=== PATIENT | male | born 1980 | race Caucasian/White ===

== ENCOUNTER → 2017-09-29 | Outpatient (CLI) | payer OTHER, MEDICAID ==
[2017-09-29 15:43] LABS: BASO # 0.1 (0.02-0.10); EOS # 0.2 (0.04-0.40); EOS % 2.1 % (0.0-4.0); HEMATOCRIT 47.7 % (42.0-52.0); HEMOGLOBIN 15.4 g/dL (13.5-18.0); LYMPH# 1.3 (1.50-4.00); MEAN CELL VOLUME 95 fl (78-100); MEAN CORPUSCULAR HEMOGLOBIN 31 pg (27-31); MEAN CORPUSCULAR HGB CONC 32 g/dL (33-37); MEAN PLATELET VOLUME 11.9 fl (7.4-10.4); MONO # 0.7 (0.20-0.80); PLATELET COUNT 157 K/mm3 (130-400); RED BLOOD COUNT 5.05 M/mm3 (4.20-5.60); WHITE BLOOD COUNT 7.5 K/mm3 (4.8-10.8)
[2017-09-29 15:55] LABS: ALBUMIN 4.1 g/dL (3.5-5.0); BUN/CREATININE RATIO 13.8 (6.0-26.0); CALCIUM 8.9 mg/dL (8.4-10.2); POTASSIUM 4.7 mmol/L (3.6-5.0); TOTAL BILIRUBIN 0.4 mg/dL (0.2-1.3)
[2017-09-29 16:53] LABS: ERYTHROCYTE SEDIMENTATION RATE 9 mm/hr (0-15)
== END ==
LOC: LAB 15:12
PROVIDERS: Internal Medicine
DX: Z00.00 Encounter for general adult medical examination without abnormal findings (principal); D64.9 Anemia, unspecified; M10.9 Gout, unspecified; E03.4 Atrophy of thyroid (acquired); D50.8 Other iron deficiency anemias; I44.2 Atrioventricular block, complete

== ENCOUNTER → 2017-12-11 | Outpatient (CLI) | payer OTHER, MEDICAID ==
[2017-12-11 15:31] LABS: BASO # 0.1 (0.02-0.10); EOS # 0.2 (0.04-0.40); EOS % 2.5 % (0.0-4.0); HEMATOCRIT 45.4 % (42.0-52.0); HEMOGLOBIN 14.9 g/dL (13.5-18.0); LYMPH# 1.3 (1.50-4.00); MEAN CELL VOLUME 94 fl (78-100); MEAN CORPUSCULAR HEMOGLOBIN 31 pg (27-31); MEAN CORPUSCULAR HGB CONC 33 g/dL (33-37); MEAN PLATELET VOLUME 11.8 fl (7.4-10.4); MONO # 0.7 (0.20-0.80); NEU # 4.8 (1.40-6.50); PLATELET COUNT 150 K/mm3 (130-400); RED BLOOD COUNT 4.84 M/mm3 (4.20-5.60); RED CELL DISTRIBUTION WIDTH 15.6 % (11.5-14.5); WHITE BLOOD COUNT 7.2 K/mm3 (4.8-10.8)
== END ==
LOC: LAB 14:49
PROVIDERS: Internal Medicine
DX: D50.8 Other iron deficiency anemias (principal); D64.9 Anemia, unspecified; Z88.0 Allergy status to penicillin

== ENCOUNTER → 2018-01-15 | Outpatient (CLI) | payer OTHER, MEDICAID ==
[~2018-01-15] VITALS: Ht 152.4 cm; Wt 91.4 kg
[~2018-01-15] MED LIST: ASPIRIN 81M81 MG/TA2 PO; LEVOTHYROXIN0.075 MG PO; NATURAL IRON65 MG PO; VITAMIN C PURE500 MG PO; WARFARIN SOD5 MG PO; ZYLOPRIM 100MG100 MG PO
[2018-01-15 11:38] VITALS: BP 143/81
[2018-01-15 12:55] LABS: HEMATOCRIT 47.7 % (42.0-52.0); HEMOGLOBIN 15.5 g/dL (13.5-18.0); MEAN CELL VOLUME 94 fl (78-100); MEAN CORPUSCULAR HEMOGLOBIN 31 pg (27-31); MEAN CORPUSCULAR HGB CONC 33 g/dL (33-37); MEAN PLATELET VOLUME 11.6 fl (7.4-10.4); PLATELET COUNT 178 K/mm3 (130-400); RED BLOOD COUNT 5.09 M/mm3 (4.20-5.60); RED CELL DISTRIBUTION WIDTH 15.9 % (11.5-14.5); WHITE BLOOD COUNT 8.8 K/mm3 (4.8-10.8)
[2018-01-15 15:02] LABS: NEUTROPHILS 69 % (42-75)
[2018-01-15 15:03] LABS: LYMPHOCYTE 23 % (20-51); MONOCYTE 8 % (3-10)
[2018-01-15 15:10] LABS: ERYTHROCYTE SEDIMENTATION RATE 8 mm/hr (0-15)
== END ==
LOC: AMSURD 11:23
PROVIDERS: Nurse Practitioner Family
DX: R05 Cough (principal); Z95.2 Presence of prosthetic heart valve; Z95.0 Presence of cardiac pacemaker

== ENCOUNTER → 2018-10-09 | Outpatient (CLI) | payer OTHER, MEDICAID ==
[2018-01-15 11:38] VITALS: BP 143/81
[2018-10-09 10:14] LABS: HEMATOCRIT 47.5 % (42.0-52.0); HEMOGLOBIN 15.4 g/dL (13.5-18.0); MEAN CELL VOLUME 93 fl (78-100); MEAN CORPUSCULAR HEMOGLOBIN 30 pg (27-31); MEAN CORPUSCULAR HGB CONC 32 g/dL (33-37); MEAN PLATELET VOLUME 11.6 fl (7.4-10.4); PLATELET COUNT 162 K/mm3 (130-400); RED BLOOD COUNT 5.12 M/mm3 (4.20-5.60); RED CELL DISTRIBUTION WIDTH 15.5 % (11.5-14.5); WHITE BLOOD COUNT 6.6 K/mm3 (4.8-10.8)
[2018-10-09 10:26] LABS: ALBUMIN 4.3 g/dL (3.5-5.0); CALCIUM 9.2 mg/dL (8.4-10.2); POTASSIUM 4.7 mmol/L (3.6-5.0); TOTAL BILIRUBIN 0.6 mg/dL (0.2-1.3); TOTAL PROTEIN 8.1 g/dL (6.3-8.2)
[2018-10-09 10:48] LABS: BAND 1 % (0-10); LYMPHOCYTE 11 % (20-51); NEUTROPHILS 71 % (42-75)
[2018-10-09 10:49] LABS: MONOCYTE 12 % (3-10)
[2018-10-09 11:09] LABS: ERYTHROCYTE SEDIMENTATION RATE 5 mm/hr (0-15)
== END ==
LOC: LAB 09:13
PROVIDERS: Internal Medicine
DX: Z00.00 Encounter for general adult medical examination without abnormal findings (principal); D64.9 Anemia, unspecified; M10.9 Gout, unspecified; E03.9 Hypothyroidism, unspecified; I44.2 Atrioventricular block, complete; D50.9 Iron deficiency anemia, unspecified

== ENCOUNTER → 2019-10-03 | Outpatient (CLI) | payer MEDICAID ==
[2018-01-15 11:38] VITALS: BP 143/81
== END ==
LOC: LAB 10:58
DX: R50.9 Fever, unspecified (principal)

== ENCOUNTER → 2019-10-06 | Outpatient (CLI) | payer MEDICARE, MEDICAID ==
[2018-01-15 11:38] VITALS: BP 143/81
[2019-10-06 17:59] LABS: PH-URINE 6.5 (5.0 - 8.0); URINE APPEARANCE CLEAR; URINE BILIRUBIN NEGATIVE (NEGATIVE); URINE BLOOD 50 ery/uL (NEGATIVE); URINE COLOR LIGHT YELLOW; URINE GLUCOSE NEGATIVE (NEGATIVE); URINE KETONE NEGATIVE (NEGATIVE); URINE LEUKOCYTE ESTERASE NEGATIVE (NEGATIVE); URINE NITRATE NEGATIVE (NEGATIVE); URINE PROTEIN(semi-quant) NEGATIVE (NEGATIVE); URINE UROBILINOGEN NORMAL (NORMAL); URINE WBC 0-1 /hpf (0-3)
== END ==
LOC: LAB 14:39
PROVIDERS: Internal Medicine
DX: R31.9 Hematuria, unspecified (principal)

== ENCOUNTER → 2019-10-12 | Outpatient (CLI) | payer MEDICARE, MEDICAID ==
[2018-01-15 11:38] VITALS: BP 143/81
[2019-10-12 09:47] LABS: ALBUMIN 3.4 g/dL (3.5-5.0); HEMATOCRIT 42.8 % (42.0-52.0); HEMOGLOBIN 13.7 g/dL (13.5-18.0); MEAN CELL VOLUME 96 fl (78-100); MEAN CORPUSCULAR HEMOGLOBIN 31 pg (27-31); MEAN CORPUSCULAR HGB CONC 32 g/dL (33-37); MEAN PLATELET VOLUME 11.9 fl (7.4-10.4); PLATELET COUNT 200 K/mm3 (130-400); POTASSIUM 4.7 mmol/L (3.5-5.1); RED BLOOD COUNT 4.48 M/mm3 (4.20-5.60); RED CELL DISTRIBUTION WIDTH 16.2 % (11.5-14.5); WHITE BLOOD COUNT 8.5 K/mm3 (4.8-10.8)
[2019-10-12 09:48] LABS: CALCIUM 8.8 mg/dL (8.3-10.5)
[2019-10-12 09:49] LABS: TOTAL PROTEIN 7.9 g/dL (6.4-8.3)
[2019-10-12 09:51] LABS: TOTAL BILIRUBIN 0.4 mg/dL (0.2-1.2)
[2019-10-12 09:56] LABS: MAGNESIUM 2.06 mg/dL (1.60-2.60)
[2019-10-12 10:50] LABS: LYMPHOCYTE 26 % (20-51); MONOCYTE 9 % (3-10); NEUTROPHILS 63 % (42-75)
[2019-10-12 10:54] LABS: ERYTHROCYTE SEDIMENTATION RATE 43 mm/hr (0-15)
== END ==
LOC: LAB 09:10
PROVIDERS: Internal Medicine
DX: Z00.00 Encounter for general adult medical examination without abnormal findings (principal); D64.9 Anemia, unspecified; I44.2 Atrioventricular block, complete; D50.8 Other iron deficiency anemias; E03.9 Hypothyroidism, unspecified; M10.9 Gout, unspecified

== ENCOUNTER → 2019-11-07 | Outpatient (CLI) | payer MEDICARE, MEDICAID ==
[2018-01-15 11:38] VITALS: BP 143/81
== END ==
LOC: RAD 13:07
DX: R05 Cough (principal); Z95.0 Presence of cardiac pacemaker; Z95.2 Presence of prosthetic heart valve

== ENCOUNTER → 2020-10-10 | Outpatient (CLI) | payer MEDICARE, MEDICAID ==
[2018-01-15 11:38] VITALS: BP 143/81
[2020-10-10 10:17] LABS: HEMATOCRIT 46.6 % (42.0-52.0); HEMOGLOBIN 15.1 g/dL (13.5-18.0); MEAN CELL VOLUME 94 fl (78-100); MEAN CORPUSCULAR HEMOGLOBIN 30 pg (27-31); MEAN CORPUSCULAR HGB CONC 32 g/dL (33-37); MEAN PLATELET VOLUME 11.9 fl (7.4-10.4); PLATELET COUNT 179 K/mm3 (130-400); RED BLOOD COUNT 4.98 M/mm3 (4.20-5.60)
[2020-10-10 10:18] LABS: ALBUMIN 3.9 g/dL (3.5-5.0); POTASSIUM 4.8 mmol/L (3.5-5.1)
[2020-10-10 10:19] LABS: CALCIUM 9.2 mg/dL (8.3-10.5)
[2020-10-10 10:20] LABS: TOTAL PROTEIN 7.7 g/dL (6.4-8.3)
[2020-10-10 10:22] LABS: TOTAL BILIRUBIN 0.4 mg/dL (0.2-1.2)
[2020-10-10 10:40] LABS: BAND 1 % (0-10); LYMPHOCYTE 14 % (20-51); MONOCYTE 9 % (3-10); NEUTROPHILS 72 % (42-75)
[2020-10-10 11:33] LABS: ERYTHROCYTE SEDIMENTATION RATE 19 mm/hr (0-15)
== END ==
LOC: LAB 09:27
PROVIDERS: Internal Medicine
DX: E03.4 Atrophy of thyroid (acquired) (principal); M10.9 Gout, unspecified; D50.9 Iron deficiency anemia, unspecified; K90.9 Intestinal malabsorption, unspecified; I38 Endocarditis, valve unspecified

== ENCOUNTER → 2021-02-18 | Outpatient (CLI) | payer MEDICARE, MEDICAID | LOC: LAB 16:41 | DX: D50.9 Iron deficiency anemia, unspecified (principal); K90.9 Intestinal malabsorption, unspecified; I38 Endocarditis, valve unspecified ==

== ENCOUNTER → 2021-02-27 | Outpatient (CLI) | payer MEDICARE, MEDICAID | LOC: VAS 13:19 → RAD 13:30 → VAS 13:30 | DX: R06.00 Dyspnea, unspecified (principal) ==

== ENCOUNTER → 2021-03-01 | Outpatient (CLI) | payer MEDICARE, MEDICAID | LOC: LAB 13:39 | DX: R79.0 Abnormal level of blood mineral (principal) ==

== ENCOUNTER → 2021-10-16 | Outpatient (CLI) | payer MEDICARE, MEDICAID ==
[2021-10-16 14:16] LABS: BASO # 0.11 K/mm3 (0.02-0.10); EOS # 0.15 K/mm3 (0.04-0.40); EOS % 1.8 % (0.0-4.0); HEMATOCRIT 45.8 % (42.0-52.0); HEMOGLOBIN 15.1 g/dL (13.5-18.0); MEAN CELL VOLUME 94 fl (78-100); MEAN CORPUSCULAR HEMOGLOBIN 31 pg (27-31); MEAN CORPUSCULAR HGB CONC 33 g/dL (33-37); MEAN PLATELET VOLUME 11.3 fl (7.4-10.4); MONO # 0.86 K/mm3 (0.20-0.80); PLATELET COUNT 170 K/mm3 (130-400); RED CELL DISTRIBUTION WIDTH 16.4 % (11.5-14.5); WHITE BLOOD COUNT 8.2 K/mm3 (4.8-10.8)
[2021-10-16 15:07] LABS: POTASSIUM 4.6 mmol/L (3.5-5.1)
[2021-10-16 15:08] LABS: ALBUMIN 3.9 g/dL (3.5-5.0); CALCIUM 9.5 mg/dL (8.3-10.5)
[2021-10-16 15:10] LABS: TOTAL PROTEIN 7.7 g/dL (6.4-8.3)
[2021-10-16 15:12] LABS: TOTAL BILIRUBIN 0.4 mg/dL (0.2-1.2)
[2021-10-16 15:41] LABS: ERYTHROCYTE SEDIMENTATION RATE 15 mm/hr (0-15)
== END ==
LOC: LAB 13:48
PROVIDERS: Internal Medicine
DX: Z12.5 Encounter for screening for malignant neoplasm of prostate (principal); E03.4 Atrophy of thyroid (acquired); I44.2 Atrioventricular block, complete; M10.9 Gout, unspecified; D50.9 Iron deficiency anemia, unspecified; K90.9 Intestinal malabsorption, unspecified; I38 Endocarditis, valve unspecified; E78.2 Mixed hyperlipidemia

== ENCOUNTER → 2021-11-02 | Outpatient (CLI) | payer MEDICARE, MEDICAID ==
[2021-11-02 12:21] LABS: BASO # 0.09 K/mm3 (0.02-0.10); EOS # 0.17 K/mm3 (0.04-0.40); EOS % 1.5 % (0.0-4.0); HEMATOCRIT 46.9 % (42.0-52.0); HEMOGLOBIN 15.4 g/dL (13.5-18.0); LYMPH# 1.11 K/mm3 (1.50-4.00); MEAN CELL VOLUME 93 fl (78-100); MEAN CORPUSCULAR HEMOGLOBIN 31 pg (27-31); MEAN CORPUSCULAR HGB CONC 33 g/dL (33-37); MEAN PLATELET VOLUME 12.2 fl (7.4-10.4); MONO # 0.85 K/mm3 (0.20-0.80); NEU # 8.69 K/mm3 (1.40-6.50); PLATELET COUNT 159 K/mm3 (130-400); RED BLOOD COUNT 5.02 M/mm3 (4.20-5.60); RED CELL DISTRIBUTION WIDTH 16.3 % (11.5-14.5); WHITE BLOOD COUNT 11.1 K/mm3 (4.8-10.8)
[2021-11-02 12:27] LABS: ALBUMIN 3.9 g/dL (3.5-5.0); POTASSIUM 4.3 mmol/L (3.5-5.1)
[2021-11-02 12:28] LABS: CALCIUM 9.1 mg/dL (8.3-10.5)
[2021-11-02 12:30] LABS: TOTAL PROTEIN 7.8 g/dL (6.4-8.3)
[2021-11-02 12:31] LABS: TOTAL BILIRUBIN 0.7 mg/dL (0.2-1.2)
[2021-11-02 13:24] LABS: ERYTHROCYTE SEDIMENTATION RATE 14 mm/hr (0-15)
== END ==
LOC: LAB 12:00
PROVIDERS: Internal Medicine
DX: M79.89 Other specified soft tissue disorders (principal)

== ENCOUNTER → 2021-12-02 | Outpatient (CLI) | payer MEDICARE, MEDICAID ==
[2021-12-02 15:59] LABS: BASO # 0.12 K/mm3 (0.02-0.10); EOS % 2.2 % (0.0-4.0); HEMATOCRIT 44.2 % (42.0-52.0); HEMOGLOBIN 14.3 g/dL (13.5-18.0); LYMPH# 1.66 K/mm3 (1.50-4.00); MEAN CELL VOLUME 94 fl (78-100); MEAN CORPUSCULAR HEMOGLOBIN 31 pg (27-31); MEAN CORPUSCULAR HGB CONC 32 g/dL (33-37); MEAN PLATELET VOLUME 11.7 fl (7.4-10.4); MONO # 0.94 K/mm3 (0.20-0.80); NEU # 6.05 K/mm3 (1.40-6.50); PLATELET COUNT 168 K/mm3 (130-400); RED BLOOD COUNT 4.69 M/mm3 (4.20-5.60); WHITE BLOOD COUNT 9.3 K/mm3 (4.8-10.8)
[2021-12-02 16:08] LABS: ALBUMIN 3.8 g/dL (3.5-5.0); POTASSIUM 4.5 mmol/L (3.5-5.1)
[2021-12-02 16:09] LABS: CALCIUM 9.2 mg/dL (8.3-10.5)
[2021-12-02 16:10] LABS: TOTAL PROTEIN 7.7 g/dL (6.4-8.3)
[2021-12-02 16:12] LABS: TOTAL BILIRUBIN 0.3 mg/dL (0.2-1.2)
== END ==
LOC: RAD 15:22 → LAB 15:22
PROVIDERS: Nurse Practitioner
DX: M25.561 Pain in right knee (principal)

== ENCOUNTER → 2021-12-31 | Outpatient (CLI) | payer MEDICARE, MEDICAID ==
[2021-12-31 18:12] LABS: URINE WBC 0 /hpf (0-3)
[2021-12-31 18:22] LABS: URINE APPEARANCE CLEAR; URINE COLOR YELLOW
[2021-12-31 18:23] LABS: URINE BILIRUBIN NEGATIVE (NEGATIVE); URINE BLOOD TRACE (NEGATIVE); URINE GLUCOSE NEGATIVE (NEGATIVE); URINE KETONE NEGATIVE (NEGATIVE); URINE LEUKOCYTE ESTERASE NEGATIVE (NEGATIVE); URINE MUCUS PRESENT (NOT PRESENT); URINE NITRATE NEGATIVE (NEGATIVE); URINE PROTEIN(semi-quant) TRACE (NEGATIVE); URINE UROBILINOGEN NORMAL (NORMAL)
== END ==
LOC: LAB 17:53
PROVIDERS: Nurse Practitioner Family
DX: R31.9 Hematuria, unspecified (principal)

== ENCOUNTER → 2022-01-08 | Outpatient (CLI) | payer MEDICARE, MEDICAID | LOC: RAD 07:59 | DX: N20.0 Calculus of kidney (principal); K80.80 Other cholelithiasis without obstruction | CPT/HCPCS: Q9967 ==

== ENCOUNTER → 2022-01-09 | Outpatient (CLI) | payer MEDICARE, MEDICAID | LOC: LAB 11:30 | DX: U07.1 COVID-19 (principal) ==

== ENCOUNTER → 2022-01-10 | Outpatient (CLI) | payer MEDICARE, MEDICAID ==
[~2022-01-10] VITALS: Ht 152.4 cm; Wt 91.4 kg
[2022-01-10 17:30] VITALS: BP 126/77
[2022-01-10 17:45] VITALS: BP 115/76
[2022-01-10 18:00] VITALS: BP 115/77
[2022-01-10 18:15] VITALS: BP 123/74
[2022-01-10 18:30] VITALS: BP 129/76
== END ==
LOC: AMSURD 07:59
DX: Z51.81 Encounter for therapeutic drug level monitoring (principal); U07.1 COVID-19
CPT/HCPCS: Q0222

== ENCOUNTER → 2022-10-14 | Outpatient (CLI) | payer MEDICARE, MEDICAID ==
[2022-10-14 10:14] LABS: BASO # 0.09 K/mm3 (0.02-0.10); EOS # 0.15 K/mm3 (0.04-0.40); EOS % 2.3 % (0.0-4.0); HEMATOCRIT 46.5 % (42.0-52.0); HEMOGLOBIN 15.1 g/dL (13.5-18.0); LYMPH# 1.03 K/mm3 (1.50-4.00); MEAN CELL VOLUME 94 fl (78-100); MEAN CORPUSCULAR HEMOGLOBIN 31 pg (27-31); MEAN CORPUSCULAR HGB CONC 33 g/dL (33-37); MEAN PLATELET VOLUME 12.2 fl (7.4-10.4); MONO # 0.57 K/mm3 (0.20-0.80); NEU # 4.37 K/mm3 (1.40-6.50); PLATELET COUNT 154 K/mm3 (130-400); RED BLOOD COUNT 4.93 M/mm3 (4.20-5.60); RED CELL DISTRIBUTION WIDTH 16.6 % (11.5-14.5); WHITE BLOOD COUNT 6.5 K/mm3 (4.8-10.8)
[2022-10-14 10:19] LABS: ALBUMIN 3.9 g/dL (3.5-5.0); POTASSIUM 4.7 mmol/L (3.5-5.1)
[2022-10-14 10:20] LABS: CALCIUM 9.4 mg/dL (8.3-10.5)
[2022-10-14 10:21] LABS: TOTAL PROTEIN 7.5 g/dL (6.4-8.3)
[2022-10-14 10:23] LABS: TOTAL BILIRUBIN 0.5 mg/dL (0.2-1.2)
[2022-10-14 12:41] LABS: ERYTHROCYTE SEDIMENTATION RATE 5 mm/hr (0-15)
== END ==
LOC: LAB 09:45
DX: Z13.6 Encounter for screening for cardiovascular disorders (principal); Z12.5 Encounter for screening for malignant neoplasm of prostate; M10.9 Gout, unspecified; I44.2 Atrioventricular block, complete; Z95.0 Presence of cardiac pacemaker; Z95.2 Presence of prosthetic heart valve; Q90.9 Down syndrome, unspecified; E78.2 Mixed hyperlipidemia; E03.4 Atrophy of thyroid (acquired); K90.9 Intestinal malabsorption, unspecified; D50.9 Iron deficiency anemia, unspecified; I38 Endocarditis, valve unspecified

== ENCOUNTER → 2023-05-12 | Outpatient (CLI) | payer MEDICARE, MEDICAID ==
[2023-05-12 11:17] LABS: EOS # 0.25 K/mm3 (0.04-0.40); EOS % 3.4 % (0.0-4.0); HEMATOCRIT 46.9 % (42.0-52.0); HEMOGLOBIN 14.8 g/dL (13.5-18.0); MEAN CELL VOLUME 95 fl (78-100); MEAN CORPUSCULAR HEMOGLOBIN 30 pg (27-31); MEAN CORPUSCULAR HGB CONC 32 g/dL (33-37); MEAN PLATELET VOLUME 11.4 fl (7.4-10.4); MONO # 0.67 K/mm3 (0.20-0.80); NEU # 4.84 K/mm3 (1.40-6.50); PLATELET COUNT 148 K/mm3 (130-400); RED BLOOD COUNT 4.93 M/mm3 (4.20-5.60); RED CELL DISTRIBUTION WIDTH 16.3 % (11.5-14.5); WHITE BLOOD COUNT 7.5 K/mm3 (4.8-10.8)
[2023-05-12 11:34] LABS: ALBUMIN 3.8 g/dL (3.5-5.0); POTASSIUM 4.8 mmol/L (3.5-5.1)
[2023-05-12 11:35] LABS: CALCIUM 9.5 mg/dL (8.3-10.5)
[2023-05-12 11:36] LABS: TOTAL PROTEIN 7.3 g/dL (6.4-8.3)
[2023-05-12 11:38] LABS: TOTAL BILIRUBIN 0.4 mg/dL (0.2-1.2)
== END ==
LOC: LAB 10:51
PROVIDERS: Internal Medicine
DX: E03.4 Atrophy of thyroid (acquired) (principal); D50.9 Iron deficiency anemia, unspecified; I44.2 Atrioventricular block, complete

== ENCOUNTER → 2023-10-21 | Outpatient (CLI) | payer MEDICARE, MEDICAID ==
[2023-10-21 09:53] LABS: HEMATOCRIT 42.5 % (42.0-52.0); HEMOGLOBIN 13.7 g/dL (13.5-18.0); MEAN CELL VOLUME 93 fl (78-100); MEAN CORPUSCULAR HEMOGLOBIN 30 pg (27-31); MEAN CORPUSCULAR HGB CONC 32 g/dL (33-37); MEAN PLATELET VOLUME 11.4 fl (7.4-10.4); PLATELET COUNT 152 K/mm3 (130-400); RED BLOOD COUNT 4.55 M/mm3 (4.20-5.60); RED CELL DISTRIBUTION WIDTH 16.6 % (11.5-14.5); WHITE BLOOD COUNT 7.3 K/mm3 (4.8-10.8)
[2023-10-21 10:05] LABS: ALBUMIN 3.7 g/dL (3.5-5.0)
[2023-10-21 10:06] LABS: CALCIUM 9.1 mg/dL (8.3-10.5)
[2023-10-21 10:08] LABS: TOTAL PROTEIN 7.4 g/dL (6.4-8.3)
[2023-10-21 10:10] LABS: TOTAL BILIRUBIN 0.6 mg/dL (0.2-1.2)
[2023-10-21 10:21] LABS: BAND 5 % (0-10)
[2023-10-21 10:22] LABS: LYMPHOCYTE 10 % (20-51); MONOCYTE 11 % (3-10)
[2023-10-21 10:23] LABS: METAMYELOCYTE 2 % (0-0); MYELOCYTE 1 % (0-0); NEUTROPHILS 68 % (42-75)
[2023-10-21 10:24] LABS: SCHISTOCYTES 1+
[2023-10-21 22:00] LABS: HEPATITIS C VIRUS ANTIBODY Negative (Negative)
[2023-10-22 20:19] LABS: FOLLICLE STIMULATING HORMONE 10.2 mIU/mL (1.0-12.0); LUTENIZING HORMONE 5.2 mIU/mL (0.6-12.1); PROLACTIN AMS 8.6 ng/mL (3.5-19.4)
== END ==
LOC: LAB 09:22
PROVIDERS: Internal Medicine
DX: Z12.5 Encounter for screening for malignant neoplasm of prostate (principal); Z11.59 Encounter for screening for other viral diseases; D50.9 Iron deficiency anemia, unspecified; E78.2 Mixed hyperlipidemia; E03.4 Atrophy of thyroid (acquired); K90.9 Intestinal malabsorption, unspecified; I38 Endocarditis, valve unspecified; M10.9 Gout, unspecified; F52.21 Male erectile disorder; R73.9 Hyperglycemia, unspecified

== ENCOUNTER → 2024-04-11 | Outpatient (CLI) | payer MEDICARE ==
[2024-04-11 12:04] LABS: BASO # 0.07 K/mm3 (0.02-0.10); EOS # 0.14 K/mm3 (0.04-0.40); EOS % 1.6 % (0.0-4.0); HEMATOCRIT 47.2 % (42.0-52.0); HEMOGLOBIN 15.1 g/dL (13.5-18.0); LYMPH# 1.41 K/mm3 (1.50-4.00); MEAN CELL VOLUME 94 fl (78-100); MEAN CORPUSCULAR HEMOGLOBIN 30 pg (27-31); MEAN CORPUSCULAR HGB CONC 32 g/dL (33-37); MEAN PLATELET VOLUME 10.9 fl (7.4-10.4); MONO # 0.88 K/mm3 (0.20-0.80); NEU # 5.72 K/mm3 (1.40-6.50); PLATELET COUNT 148 K/mm3 (130-400); RED BLOOD COUNT 5.01 M/mm3 (4.20-5.60); RED CELL DISTRIBUTION WIDTH 16.4 % (11.5-14.5); WHITE BLOOD COUNT 8.6 K/mm3 (4.8-10.8)
[2024-04-11 12:10] LABS: ALBUMIN 3.9 g/dL (3.5-5.0)
[2024-04-11 12:11] LABS: CALCIUM 9.7 mg/dL (8.3-10.5)
[2024-04-11 12:13] LABS: TOTAL PROTEIN 7.4 g/dL (6.4-8.3)
[2024-04-11 12:15] LABS: TOTAL BILIRUBIN 0.5 mg/dL (0.2-1.2)
== END ==
LOC: LAB 11:46
PROVIDERS: Internal Medicine
DX: G45.9 Transient cerebral ischemic attack, unspecified (principal); E03.4 Atrophy of thyroid (acquired)

== ENCOUNTER 2024-08-17 21:32 | Emergency (ER) | payer MEDICARE, MEDICAID ==
[2024-08-17 21:36] VITALS: BP 149/97
[2024-08-17] MEDS ORDERED: Topical Skin Adhesive 1 EACH (0.5 ML) TOP ONE (21:45)
[2024-08-17] MEDS ORDERED: WARFARIN SODIUM1 MG PO (21:52)
[2024-08-17] MEDS ORDERED: PREMIERPRO RX5 MG/GM OP (21:52)
[2024-08-17] MEDS ORDERED: MUPIROCIN2% TP (21:52)
== END 2024-08-17 22:35 | disposition home or self-care (01) ==
LOC: ED 21:32
DX: T81.31XA Disruption of external operation (surgical) wound, not elsewhere classified, initial encounter (principal); E66.9 Obesity, unspecified

== ENCOUNTER → 2024-10-25 | Outpatient (CLI) | payer MEDICARE, MEDICAID ==
[~2024-10-25] MED LIST changes: +MUPIROCIN2% TP; +PREMIERPRO RX5 MG/GM OP; +WARFARIN SODIUM1 MG PO
[2024-10-25 12:10] LABS: BASO # 0.07 K/mm3 (0.02-0.10); EOS # 0.15 K/mm3 (0.04-0.40); EOS % 2.1 % (0.0-4.0); HEMATOCRIT 46.2 % (42.0-52.0); HEMOGLOBIN 14.9 g/dL (13.5-18.0); LYMPH# 1.02 K/mm3 (1.50-4.00); MEAN CELL VOLUME 93 fl (78-100); MEAN CORPUSCULAR HEMOGLOBIN 30 pg (27-31); MEAN CORPUSCULAR HGB CONC 32 g/dL (33-37); MEAN PLATELET VOLUME 11.5 fl (7.4-10.4); MONO # 0.67 K/mm3 (0.20-0.80); NEU # 5.03 K/mm3 (1.40-6.50); PLATELET COUNT 167 K/mm3 (130-400); RED BLOOD COUNT 4.97 M/mm3 (4.20-5.60); RED CELL DISTRIBUTION WIDTH 16.6 % (11.5-14.5); WHITE BLOOD COUNT 7.2 K/mm3 (4.8-10.8)
[2024-10-25 12:12] LABS: ALBUMIN 3.8 g/dL (3.5-5.0)
[2024-10-25 12:14] LABS: CALCIUM 9.2 mg/dL (8.3-10.5)
[2024-10-25 12:15] LABS: TOTAL PROTEIN 7.7 g/dL (6.4-8.3)
[2024-10-25 12:17] LABS: TOTAL BILIRUBIN 0.5 mg/dL (0.2-1.2)
[2024-10-25 12:22] LABS: MAGNESIUM 1.71 mg/dL (1.60-2.60)
== END ==
LOC: LAB 11:32
PROVIDERS: Internal Medicine
DX: Z12.5 Encounter for screening for malignant neoplasm of prostate (principal); I38 Endocarditis, valve unspecified; I44.2 Atrioventricular block, complete; E03.4 Atrophy of thyroid (acquired); M10.9 Gout, unspecified; D50.9 Iron deficiency anemia, unspecified; K90.9 Intestinal malabsorption, unspecified; R89.1 Abnormal level of hormones in specimens from other organs, systems and tissues